=== PATIENT | male | born 1970 | race African-American/Black ===

== ENCOUNTER 2024-02-19 04:27 | Emergency (ER) | payer OTHER ==
[~2024-02-19] VITALS: Ht 190.5 cm; Wt 95.3 kg
[2024-02-19 05:04] VITALS: BP 147/90; TEMP 98.5
[2024-02-19] MEDS ORDERED: IBUP-1490 PO (06:16)
== END 2024-02-19 06:34 | disposition home or self-care (01) ==
LOC: ER 04:32
DX: S62.664A Nondisplaced fracture of distal phalanx of right ring finger, initial encounter for closed fracture (principal); S62.666A Nondisplaced fracture of distal phalanx of right little finger, initial encounter for closed fracture; Z60.2 Problems related to living alone; W23.2XXA Caught, crushed, jammed or pinched between a moving and stationary object, initial encounter; Y93.89 Activity, other specified; Y92.89 Other specified places as the place of occurrence of the external cause; Y99.8 Other external cause status
CPT/HCPCS: 73140-TC

== ENCOUNTER 2024-09-11 20:10 | Emergency (ER) | payer OTHER ==
[~2024-09-11] VITALS: Ht 190.5 cm; Wt 104.3 kg
[~2024-09-11 20:10] MED LIST: IBUP-1490 PO
[2024-09-12] MEDS ORDERED: HYDROCODONE/APAP 5/325MG TABLET ONE
[2024-09-12] MEDS: HYDROCODONE/APAP 5/325MG TABLET PO ONE (00:01)
[2024-09-12] MEDS ORDERED: ACETAMINOPHEN 325 MG TABLET ONE (00:07)
[2024-09-12] MEDS: ACETAMINOPHEN 325 MG TABLET PO ONE (00:08)
[2024-09-12] MEDS ORDERED: IBUP-1957 PO (01:13)
[2024-09-12 01:20] VITALS: BP 132/78; TEMP 98.4; O2SAT 98
== END 2024-09-12 01:20 | disposition home or self-care (01) ==
LOC: ER 20:20
DX: S16.1XXA Strain of muscle, fascia and tendon at neck level, initial encounter (principal); S00.83XA Contusion of other part of head, initial encounter; Z60.2 Problems related to living alone; Z79.1 Long term (current) use of non-steroidal anti-inflammatories (NSAID); V49.49XA Driver injured in collision with other motor vehicles in traffic accident, initial encounter; Y93.89 Activity, other specified; Y92.415 Exit ramp or entrance ramp of street or highway as the place of occurrence of the external cause; Y99.8 Other external cause status
CPT/HCPCS: 70450-TC; 72125-TC; 72128-TC; 72131-TC